=== PATIENT | male | born 1955 | race Caucasian/White ===

== ENCOUNTER 2018-08-20 13:16 | Inpatient (IN) | payer OTHER ==
[~2018-08-20] VITALS: Ht 180.3 cm; Wt 86.2 kg
[2018-08-20] MEDS ORDERED: ACETAMINOPHEN 120 MG/SUPP.RECT RC ONE (13:28)
[2018-08-20] MEDS ORDERED: ACETAMINOPHEN 650 MG/SUPP.RECT RC ONE (13:30)
[2018-08-20] MEDS ORDERED: PIPERACILLIN /TAZOBACTAM 3.375 G in IV D5W 50 ML IV ONE (13:30)
[2018-08-20] MEDS ORDERED: VANCOMYCIN 1 GM in IV D5W 250 ML IV ONE (13:30)
[2018-08-20] MEDS ORDERED: IV NS 0.9% 1,000 ML BAG IV ONE (13:30)
--- NOTE | 2018-08-20 13:30 | NUR ---
patient presented to ER ov[facility] from [facility] due to sepsis. Dr. Hathaway at bedside for eval. Connected to the monitor and pulse ox. Kept comfortable, will continue to monitor accordingly.
--- NOTE | 2018-08-20 13:31 | NUR ---
IV access initiated and blood drawned and sent to lab. Urine collected.
[2018-08-20 13:36] LABS: BASOPHILS # (AUTO) 0.1 /CMM (0.0-0.2); BASOPHILS % (AUTO) 0.4 % (0.0-2.0); HEMATOCRIT 42 % (39-51); HEMOGLOBIN 14.2 g/dL (13.5-17.5); LYMPHOCYTES # (AUTO) 2.7 /CMM (0.8-4.8); LYMPHOCYTES % (AUTO) 14.4 % (20.0-44.0); MEAN CORPUSCULAR HGB CONC 34 g/dl (31.0-36.0); MEAN CORPUSCULAR VOLUME 99 fL (80-96); MONOCYTES # (AUTO) 2.5 /CMM (0.1-1.30); MONOCYTES % (AUTO) 13.4 % (2.0-12.0); NEUTROPHILS # (AUTO) 13.2 /CMM (1.8-8.9); NEUTROPHILS % (AUTO) 71.8 % (43.0-81.0); PLATELET COUNT (AUTO) 290 /CMM (150-450); RED BLOOD CELL COUNT(AUTO) 4.27 MIL/uL (4.5-6.0); WHITE BLOOD COUNT (AUTO) 18.4 K/uL (4.3-11.0)
[2018-08-20 13:42] LABS: APPEARANCE,URINE Clear (CLEAR); BILIRUBIN,URINE Negative (NEGATIVE); BLOOD, URINE Small Ery/uL (NEGATIVE); COLOR,URINE Yellow (YELLOW); KETONES,URINE 15 (NEGATIVE); LEUKOCYTE ESTERASE ,URINE Negative (NEGATIVE); NITRITE, URINE Negative (NEGATIVE); PROTEIN,URINE 30 mg/dl (NEGATIVE); UGLUCOSE 500 MG/DL mg/dL (NEGATIVE)
[2018-08-20 13:44] LABS: BACTERIA,URINE Few /HPF (None Seen); SQUAMOUS EPITHELIAL CELL,UR Rare /HPF (None Seen); WBC,URINE 0-2 /HPF (0-3)
[2018-08-20 13:46] LABS: SODIUM SERUM 142 mmol/L (136-145)
[2018-08-20 13:47] LABS: CALCIUM, SERUM 9.6 mg/dL (8.5-10.1); CARBON DIOXIDE 23 mmol/L (21-32); CHLORIDE 108 mmol/L (98-107); CREATININE 1.2 mg/dL (0.6-1.3); POTASSIUM 4.3 mmol/L (3.5-5.1); UREA NITROGEN, BLOOD 31 mg/dL (7-18)
[2018-08-20 13:48] LABS: GLUCOSE 364 mg/dL (74-106)
--- NOTE | 2018-08-20 13:50 | NUR ---
PT TO RADIOLOGY DEPT VIA [facility].
[2018-08-20 13:53] LABS: ALANINE AMINOTRANSFERASE 58 U/L (12-78); ALBUMIN 1.9 g/dL (3.4-5.0); ALKALINE PHOSPHATASE 61 U/L (46-116); ASPARTATE AMINOTRANSFERASE 125 U/L (15-37); BILIRUBIN,DIRECT 0.2 mg/dL (0.0-0.2); BILIRUBIN,TOTAL 0.6 mg/dL (0.2-1.0); TOTAL PROTEIN, SERUM 7.7 g/dL (6.4-8.2)
--- NOTE | 2018-08-20 14:12 | NUR ---
MEDICATED PER ERMD ORDERS, PT ROBEL WELL. RR EVEN & UNLABORED. NAD NOTED @ THIS TIME. WILL CONT TO MONITOR.
[2018-08-20] MEDS ORDERED: ASPIRIN 300 MG/SUPP.RECT RC ONE ×2 (15:00→15:12)
--- NOTE | 2018-08-20 15:04 | NUR ---
PT STABLE, RR EVEN & UNLABORED. NO ACUTE DISTRESS NOTED AT THIS TIME. WILL CONT TO MONITOR.
--- NOTE | 2018-08-20 15:33 | NUR ---
CALLED DR ANDREW LEFT A VOICEMAIL.
--- NOTE | 2018-08-20 15:39 | NUR ---
CALLED DR ANDREW, ON THE PHONE WITH DR LONGO
--- NOTE | 2018-08-20 17:13 | NUR ---
REPORT GIVEN TO THERESA PICKENS FOR CONT OF CARE.
[2018-08-20 17:30] VITALS: BP 114/67
--- NOTE | 2018-08-20 17:30 | NUR ---
tele pediatric acute care unit nurse: admission admitted this 62 yr old male pt from [facility] with dx: sepsis and pneumonia. pt with eyes open, but non-verbal at this time. unable to obtain information due to cognitive impairment. place pt on tele=st 130. pt has diaper, but dry at this time. kept clean and dry. all wounds photos taken and place in chart. pt still having temp of 101 (r). oriented to room and surroundings. place call light within reach. will continue to monitor.
[2018-08-20 18:00] VITALS: BP 114/67
--- NOTE | 2018-08-20 18:30 | NUR ---
m/s attacher: notes dr. bowers notified and made aware re: admission with new orders. orders read back and carried out and acknowledged.
--- NOTE | 2018-08-20 18:45 | NUR ---
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 LO NOTIFIED RE: CONSULT, SPOKE TO HIM OVER THE PHONE.
[2018-08-20] MEDS ORDERED: IV D5/ 0.9% NACL 1,000 ML IV PRN (19:00)
[2018-08-20] MEDS ORDERED: ACETAMINOPHEN 650 MG/SUPP.RECT RC PRN (19:00)
[2018-08-20] MEDS ORDERED: FEE PK DOSING 1 MIN EA MC ONE (19:11)
--- NOTE | 2018-08-20 19:30 | NUR ---
ORDER CHECKER NOTES RECEIVED PATIENT ASLEEP IN BED, NO SIGNS OF DISTRESS NOTED, ALL SAFETY MEASURES IN PLACE, ASPIRATION PRECAUTION OBSERVED, IV LINE INTACT AND PATENT, KEPT COMFORTABLE, WILL CONTINUE TO MONITOR ACCORDINGLY.
--- NOTE | 2018-08-20 19:38 | NUR ---
tele color checker roving or yarn: notes report given to dipesh (rn) for continuity of care.
[2018-08-20 20:00] VITALS: BP 132/78
[2018-08-20] MEDS ORDERED: PIPERACILLIN /TAZOBACTAM 3.375 G in IV D5W 50 ML IV SCH (21:00)
[2018-08-20] MEDS: PIPERACILLIN /TAZOBACTAM 3.375 G in IV D5W 100 ML IV SCH (21:53)
--- NOTE | 2018-08-21 | NUR ---
RN NOTES OBTAINED MEDICATION RECORDS FROM [facility], RECEIVED FAXED, PATIENTS POLST AND MEDICATIONS LIST.
[2018-08-21] MEDS ORDERED: VANCOMYCIN 1 GM in IV D5W 250 ML IV SCH (02:00)
[2018-08-21] MEDS: PIPERACILLIN /TAZOBACTAM 3.375 G in IV D5W 100 ML IV SCH ×2 (05:00→12:25)
[2018-08-21] MEDS ORDERED: TAMS-12 PO (05:48)
[2018-08-21] MEDS ORDERED: LAMO25TA10 PO (05:48)
[2018-08-21] MEDS ORDERED: DOCU100C36 PO (05:48)
[2018-08-21] MEDS ORDERED: MAGN400O21 PO (05:48)
[2018-08-21] MEDS ORDERED: ACET325C5 PO (05:48)
[2018-08-21] MEDS ORDERED: ESCI10TA PO (05:48)
[2018-08-21] MEDS ORDERED: QUET200T5 PO (05:48)
[2018-08-21] MEDS ORDERED: DIVA500T4 PO (05:48)
[2018-08-21] MEDS ORDERED: BISA10SU61 RC (05:48)
[2018-08-21] MEDS ORDERED: ATOR40TA PO (05:48)
[2018-08-21] MEDS ORDERED: SENN-168 PO (05:48)
[2018-08-21 05:52] LABS: CREATININE 0.9 mg/dL (0.6-1.3); POTASSIUM 3.9 mmol/L (3.5-5.1)
[2018-08-21 05:56] LABS: BASOPHILS # (AUTO) 0.1 /CMM (0.0-0.2); BASOPHILS % (AUTO) 0.3 % (0.0-2.0); HEMATOCRIT 37 % (39-51); HEMOGLOBIN 12.2 g/dL (13.5-17.5); LYMPHOCYTES # (AUTO) 2.7 /CMM (0.8-4.8); LYMPHOCYTES % (AUTO) 18.1 % (20.0-44.0); MEAN CORPUSCULAR HGB CONC 33 g/dl (31.0-36.0); MEAN CORPUSCULAR VOLUME 100 fL (80-96); MONOCYTES # (AUTO) 1.6 /CMM (0.1-1.30); MONOCYTES % (AUTO) 10.3 % (2.0-12.0); NEUTROPHILS # (AUTO) 10.7 /CMM (1.8-8.9); NEUTROPHILS % (AUTO) 71.3 % (43.0-81.0); PLATELET COUNT (AUTO) 208 /CMM (150-450); RED BLOOD CELL COUNT(AUTO) 3.69 MIL/uL (4.5-6.0); WHITE BLOOD COUNT (AUTO) 15.1 K/uL (4.3-11.0)
--- NOTE | 2018-08-21 07:15 | NUR ---
KENNEL AIDE OPENING NOTE RECEIVED PATIENT IN BED. SLEEPING, EASILY AROUSED WITH PHYSICAL STIMULI. ORIENTED X1, CONFUSED, FORGETFUL, SPEECH IS UNCLEAR. PATIENT IS ON 2L O2 VIA NC, TOLERATING WELL. IN NO APPARENT DISTRESS OR DISCOMFORT AT THIS TIME. RESPIRATIONS EVEN AND UNLABORED. ON TELE MONITORING WITH SR AT THIS TIME. PATIENT IS INCONTINENT WITH DIAPER FOR ELIMINATION. LEFT AC 18G IVC WITH FLUIDS RUNNING AT 100ML/HR, PATENT AND INTACT. PATIENT KEPT CLEAN AND COMFORTABLE. ALL NEEDS ATTENDED, SAFETY MEASURES IN PLACE, BED IN LOW LOCKED POSITION, SIDE RAILS UP X2, CALL LIGHT WITHIN EASY REACH. WILL CONTINUE TO MONITOR.
--- NOTE | 2018-08-21 07:49 | NUR ---
RN NOTES PATIENT IS RESTING COMFORTABLY AT THIS TIME, NO SIGNS OF DISTRESS, ENDORSE TO AM NURSE FOR CONTINUITY OF CARE.
[2018-08-21 08:00] VITALS: BP 125/67
[2018-08-21] MEDS ORDERED: AMOX-430 PO (08:58)
[2018-08-21] MEDS ORDERED: LamoTRIgine 25 MG TABLET PO SCH (09:00)
[2018-08-21] MEDS ORDERED: ESCITALOPRAM OXALATE (10 MG) 10 MG TABLET PO SCH ×2 (09:00)
[2018-08-21] MEDS ORDERED: DOCUSATE SODIUM 100 MG CAPSULE PO SCH (09:00)
[2018-08-21] MEDS ORDERED: TAMSULOSIN 0.4 MG CAP.SR.24H PO PRN (09:00)
[2018-08-21] MEDS ORDERED: ACETAMINOPHEN 325 MG TABLET PO SCH (09:30)
[2018-08-21] MEDS: HYDROGEL DRESSING 90 GM TUBE TP SCH ×2 (09:31→09:34)
--- NOTE | 2018-08-21 10:00 | NUR ---
DR. AZEVEDO IS AT BEDSIDE FOR RIGHT HEEL WOUND DEBRIDEMENT. PROCEDURE WAS DISCUSSED WITH PATIENT'S BROTHER AND WITNESSED BY PRIMARY RN. CONSENT FORM SIGNED BY THE BROTHER AND PLACE DIN CHART.
--- NOTE | 2018-08-21 15:50 | NUR ---
[place] MEDICAID BILLER NOTE RECEIVED ORDER FOR DISCHARGE FROM DR. ANDREW. PATIENT IS GOING BACK TO [facility] FOR ONGOING CARE. PATIENT IS DISORIENTED, SPEECH IS UNCLEAR. PATIENT IS ON 2L O2 VIA NC, TOLERATING WELL. IN NO APPARENT DISTRESS OR DISCOMFORT AT THIS TIME. RESPIRATIONS EVEN AND UNLABORED. PATIENT IS STABLE, VITAL SIGNS ARE STABLE. [facility]PAR[facility]. UNABLE TO PROVIDE EDUCATION TO THE PATIENT DUE TO ALTERED MENTAL STATUS. PATIENT'S SANTIAGO WAS DISCUSSED WITH SNF NURSE NARCISO. REPORT GIVEN REGARDING PATIENT'S CONDITION AND FOLLOW UP CARE. BELONGINGS CHECKED AND VERIFIED WITH ANOTHER NURSE. ALL PAPERWORK REVIEWED AND SIGNED WITH JORY REYES. MEDICATION LIST ORDERED BY DR. ANDREW WAS ATTACHED WITH THE FOLDER. COPIES MADE FOR ALL THE DISCHARGE PAPERWORK PLACED IN [place]. FAMILY IS AWARE OF PATIENT'S TRANSFER. PATIENT RECORDS INDICATE HE REFUSED VACCINATIONS. IV SITES ON RIGHT AND LEFT ARMS WERE DISCONTINUED, TIPS INTACT. ID BANDS REMOVED. PATIENT WAS PICKED UP BY AMBULANCE AND TRANSFERRED AT 1550.
[2018-08-21] MEDS ORDERED: QUETIAPINE FUMARATE 100 MG TABLET PO SCH (17:00)
[2018-08-21] MEDS ORDERED: DIVALPROEX SODIUM 250 MG TABLET.DR PO SCH (17:00)
[2018-08-21] MEDS ORDERED: ATORVASTATIN 40 MG TABLET PO SCH (18:00)
== END 2018-08-21 16:04 | DRG 720 ==
LOC: ER 13:17 → TELE 16:42
PROVIDERS: ADMIT Internal Medicine; ATTEND Internal Medicine
PROC: 0JBQ0ZZ Excision of Right Foot Subcutaneous Tissue and Fascia, Open Approach (ICD-10-PCS; principal; 2018-08-21)
DX: A41.9 Sepsis, unspecified organism (principal); L89.150 Pressure ulcer of sacral region, unstageable; E87.2 Acidosis; R53.2 Functional quadriplegia; J18.9 Pneumonia, unspecified organism; L89.613 Pressure ulcer of right heel, stage 3; N40.0 Benign prostatic hyperplasia without lower urinary tract symptoms; E78.5 Hyperlipidemia, unspecified; Z86.73 Personal history of transient ischemic attack (TIA), and cerebral infarction without residual deficits; G40.909 Epilepsy, unspecified, not intractable, without status epilepticus; F31.9 Bipolar disorder, unspecified; Z98.890 Other specified postprocedural states; Z87.891 Personal history of nicotine dependence; L89.620 Pressure ulcer of left heel, unstageable; M24.562 Contracture, left knee; M24.561 Contracture, right knee; E44.1 Mild protein-calorie malnutrition
CPT/HCPCS: 36415; 70450-TC; 71045-TC; 80048-TC; 80076-TC; 81000-TC; 83605-TC; 84484-TC; 85025-TC; 85730-TC; 87040-TC; 87081-TC; 87086-TC; A6248; A6402; G0378; J2543; J3370; J7030; J7040; J7042; J7060